=== PATIENT | female | born 1960 | race Caucasian/White ===

== ENCOUNTER 2019-06-04 08:00 | Outpatient (CLI) | payer MEDICAID | END 2019-06-04 23:59 | disposition home or self-care (01) | LOC: D.MAMMO 08:00 | PROVIDERS: ATTEND Nurse Practitioner Family | DX: Z12.31 Encounter for screening mammogram for malignant neoplasm of breast (principal) ==

== ENCOUNTER 2019-08-28 19:00 | Outpatient (CLI) | payer OTHER | END 2019-08-28 23:59 | disposition home or self-care (01) | LOC: D.MAMMO 19:00 | PROVIDERS: ATTEND Nurse Practitioner Family | DX: R92.8 Other abnormal and inconclusive findings on diagnostic imaging of breast (principal) ==

== ENCOUNTER → 2019-09-05 07:11 | Outpatient (CLI) | payer OTHER | END | disposition home or self-care (01) | LOC: D.US 07:11 | PROVIDERS: ATTEND Nurse Practitioner Family | DX: R92.8 Other abnormal and inconclusive findings on diagnostic imaging of breast (principal) ==

== ENCOUNTER 2019-09-13 13:44 | Emergency (ER) | payer OTHER ==
[~2019-09-13] VITALS: Ht 166.4 cm; Wt 95.5 kg
[2019-09-13 13:48] VITALS: Ht 166.4 cm; Wt 95.5 kg
[2019-09-13] MEDS ORDERED: METFORMIN HCL500 M1 PO (13:51)
[2019-09-13] MEDS ORDERED: LISINOPRIL10 MG PO (13:51)
[2019-09-13] MEDS ORDERED: GABAPENTIN100 MG PO (13:52)
[2019-09-13 14:46] LABS: BASOPHILS 0.4 % (0-2); EOSINOPHILS 2.2 % (0-7); HEMATOCRIT 40.3 % (36.0-48.0); HEMOGLOBIN 13.7 g/dL (12-16); IMMATURE GRANULOCYTES 0.2 % (0-5); LYMPHOCYTES 31.9 % (15-50); MCH 31.1 pg (26.0-34.0); MCV 91.6 fL (80.0-100.0); MEAN PLATELET VOLUME 9.1 fL (7.4-10.4); MONOCYTES 4.5 % (2-11); NEUTROPHILS 60.8 % (40-80); PLATELET COUNT 345 10x3/uL (130-400); RDW 12.5 % (11.5-14.5); WBC 9.6 10x3/uL (4.8-10.8)
[2019-09-13] MEDS ORDERED: ZOLOFT100 MG PO (14:57)
[2019-09-13] MEDS ORDERED: METHOCARBAMOL750 MG NG (14:59)
[2019-09-13] MEDS ORDERED: LIPITOR20 MG PO (15:00)
[2019-09-13 15:11] LABS: CALC OSMOLALITY 281 mosm/kg (275-300); CARBON DIOXIDE 30.8 mmol/L (21.0-32.0); CHLORIDE - SERUM 105 mmol/L (98-107); CREATININE - SERUM 0.8 mg/dL (0.6-1.3); GLUCOSE 102 mg/dL (74-106); POTASSIUM - SERUM 4.3 mmol/L (3.5-5.1); SODIUM 142 mmol/L (136-145); UREA NITROGEN 11 mg/dL (7-18); eGFR NON AFRICAN AMERICAN 78 mL/min (90-120)
[2019-09-13 15:23] LABS: ALKALINE PHOSPHATASE 120 U/L (30-120); ALT (SGPT) 27 U/L (10-68); BILIRUBIN - TOTAL 0.29 mg/dL (0.2-1.3); CKMB 1.3 U/L (0.0-3.6); CREATINE KINASE 137 UL (21-215); MAGNESIUM - SERUM 1.7 mg/dL (1.8-2.4); PROTEIN - SERUM 7.2 g/dL (6.4-8.2); TROPONIN-I < 0.017 ng/mL (0.000-0.060)
[2019-09-13 15:26] LABS: APTT 30.6 SECONDS (22.8-39.4); INR 0.89 (0.85-1.17)
[2019-09-13 16:43] VITALS: BP 130/73
== END 2019-09-13 16:45 | disposition home or self-care (01) ==
LOC: D.ER 13:44
PROVIDERS: Family Medicine
DX: G89.18 Other acute postprocedural pain (principal); R07.9 Chest pain, unspecified; N64.4 Mastodynia; E11.40 Type 2 diabetes mellitus with diabetic neuropathy, unspecified; I10 Essential (primary) hypertension; Z79.84 Long term (current) use of oral hypoglycemic drugs

== ENCOUNTER 2019-12-11 05:48 | Day surgery (SDC) | payer OTHER ==
[2019-12-10 10:33] LABS: APTT 28.6 SECONDS (22.8-39.4); INR 0.96 (0.85-1.17); PROTIME 12.7 SECONDS (11.6-15.0)
[2019-12-10 10:37] LABS: BASOPHILS 0.5 % (0-2); EOSINOPHILS 2.5 % (0-7); HEMATOCRIT 42.2 % (36.0-48.0); HEMOGLOBIN 13.5 g/dL (12-16); IMMATURE GRANULOCYTES 0.2 % (0-5); LYMPHOCYTES 23.9 % (15-50); MCH 30.3 pg (26.0-34.0); MCV 94.6 fL (80.0-100.0); MEAN PLATELET VOLUME 9.3 fL (7.4-10.4); MONOCYTES 8.2 % (2-11); NEUTROPHILS 64.7 % (40-80); PLATELET COUNT 362 10x3/uL (130-400); RBC 4.46 10x6/uL (4.00-5.40); RDW 12.9 % (11.5-14.5); WBC 10.2 10x3/uL (4.8-10.8)
[2019-12-10 10:41] LABS: ANION GAP 16.3 mmol/L (8-16); CALCIUM 9.3 mg/dL (8.5-10.1); CARBON DIOXIDE 24.4 mmol/L (21.0-32.0); POTASSIUM - SERUM 4.7 mmol/L (3.5-5.1)
[~2019-12-11] VITALS: Ht 165.1 cm; Wt 98.2 kg
[2019-12-11] VITALS (7 sets, daily range): BP systolic 113–148; BP diastolic 60–71; Ht 165.1 cm; Wt 98.2 kg
[~2019-12-11 05:48] MED LIST: GABAPENTIN100 MG PO; GEMFIBROZIL600 MG PO; KLONOPIN0.5 MG PO; LIPITOR20 MG PO; LISINOPRIL10 MG PO; METFORMIN HCL500 M1 PO; METHOCARBAMOL750 MG NG; MOBIC7.5 MG PO; OMEPRAZOLE20 M1 PO; ZOLOFT100 MG PO
--- NOTE | 2019-12-11 11:30 | NUR ---
RECEIVED PT FROM RN'S GABI AND GWEN. PT IS SEDATED, EASILY AWAKENED TO ANSWER QUESTIONS. IV IN RT HAND PATENT, GILMAR DRAIN TO RT AND LT SIDE OF CHEST, COMPRESSED AND DRAINING BLOODY FLUID. PT STATES PAIN IS AT AN 8 STILL, INFORMED PT THAT IT MAY STILL BE TOO EARLY TO ADMINISTER ANY AT THE MOMENT AND I WILL WAIT UNTIL AFTER PT EATS TO ADMINISTER ANY MORE IF PAIN IS NOT CONTROLLED BY THEN. PT HAS JERMAIN BANDAGE INTACT AROUND CHEST. NO OTHER NEEDS VOICED ,PT STATED SHE JUST WANTS TO REST AND HAS INFORMED HER CHILDREN TO NOT CALL. PT DAUGHTER HAS ALREADY CALLED TWICE TO CHECK ON PT . CL IN REACH, ASSUME PT CARE
--- NOTE | 2019-12-11 15:45 | NUR ---
PT SLEEPING ON RT SIDE, WOKE PT FOR SCHEDULED MEDS, WHEN PT ASKED WHAT HER PAIN LEVEL WAS SHE STATED " HURTS LIKE HELL". ADMINISTERED PRN PAIN MEDICATION WELL. PT HAS 2 GILMAR DRAINS ON RT SIDE WELL 2 GILMAR DRAINS ON LEFT SIDE. JP1 EMPTIED 70, GILMAR 2 EMPTIED 10, GILMAR 3 EMPTIED 30 GILMAR 4 EMPTIED 10. RT SIDE GILMAR DRAINS LABELED 1&2 AND LEFT SIDE LABELED 3&4. NO OTHER NEEDS VOICED AT THIS TIME, CONTINUE WITH PLAN OF CARE
[2019-12-12 00:02] VITALS: BP 128/63
--- NOTE | 2019-12-12 04:40 | NUR ---
I have reviewed this patient and I concur with the Shift Assessment completed by the Licensed Practical Nurse today this shift.
[2019-12-12 04:45] VITALS: BP 118/72
[2019-12-12 05:02] LABS: BASOPHILS 0.4 % (0-2); EOSINOPHILS 2.7 % (0-7); HEMATOCRIT 38.5 % (36.0-48.0); HEMOGLOBIN 12.1 g/dL (12-16); IMMATURE GRANULOCYTES 0.2 % (0-5); LYMPHOCYTES 23.6 % (15-50); MCHC 31.4 g/dL (31.0-37.0); MCV 95.3 fL (80.0-100.0); MEAN PLATELET VOLUME 8.8 fL (7.4-10.4); MONOCYTES 7.7 % (2-11); NEUTROPHILS 65.4 % (40-80); RBC 4.04 10x6/uL (4.00-5.40); RDW 13.2 % (11.5-14.5); WBC 9.2 10x3/uL (4.8-10.8)
[2019-12-12 05:24] LABS: PLATELET COUNT 285 10x3/uL (130-400)
[2019-12-12 05:34] LABS: CALC OSMOLALITY 284 mosm/kg (275-300); CALCIUM 8.3 mg/dL (8.5-10.1); CARBON DIOXIDE 25.1 mmol/L (21.0-32.0); CHLORIDE - SERUM 106 mmol/L (98-107); CREATININE - SERUM 0.8 mg/dL (0.6-1.3); GLUCOSE 129 mg/dL (74-106); POTASSIUM - SERUM 4.1 mmol/L (3.5-5.1); SODIUM 141 mmol/L (136-145); UREA NITROGEN 17 mg/dL (7-18); eGFR NON AFRICAN AMERICAN 78 mL/min (90-120)
[2019-12-12 08:54] VITALS: BP 120/71
--- NOTE | 2019-12-12 09:38 | NUR ---
ALERT AND ORIENTED. LUNGS CLEAR BILATERALLY. HEART SOUNDS S1 AND S2 HEARD IN ALL DOS SANTOS. DRSGS TO BILATERAL CHEST C/D/I. X [address] IV TO RIGHT HAND PATENT WITHOUT REDNES. DENIES NEEDS. BED LOW. CALL MARCELINO AND PERSONAL ITEMS IN REACH. WILL CONTINUE TO MONITOR.
--- NOTE | 2019-12-12 09:57 | OP ---
PATIENT NAME: GOPI BENSON MEDICAL RECORD: [id number] :62 LOCATION:[id number] ADMISSION DATE:12/11/19 SURGEON: DOMINICK STEWART MD DATE OF OPERATION: 12/11/2019 PREOPERATIVE DIAGNOSES: 1. Ductal carcinoma in situ of the left breast. 2. Diabetes mellitus. 3. Hypercholesterolemia. 4. Hypertension. POSTOPERATIVE DIAGNOSES: 1. Ductal carcinoma in situ of the left breast. 2. Diabetes mellitus. 3. Hypercholesterolemia. 4. Hypertension. PROCEDURE: Bilateral simple mastectomies. SURGEON: Dominick Stewart MD REPORT OF PROCEDURE: The patient's chest was prepped and draped in sterile fashion. An ovoid incision was made starting on the right breast. This was done around the nipple areolar complex. Electrocautery was used to dissect through the subcutaneous tissues to the breast tissue. We took off the breast tissue, incorporating a small piece of the underlying fatty tissue. We continued this dissection superiorly to the clavicles, inferiorly down to the rectus, laterally towards the axilla and lateral chest wall and medially to the sternum. Once we had this freed up from the surrounding subcutaneous tissue, then we took the breast tissue and pectoral fascia off of the pectoral muscle. Any bleeding that was found was treated with electrocautery or with 3-0 silk ties. Once we had the breast taken off, then it was marked appropriately and sent off for permanent specimen. We irrigated out the wound with sterile water and checked thoroughly for any signs of bleeding. We then made two small openings in the lateral right chest inferior to the wound and placed a 10 flat GILMAR drains times 2. Over this, we closed the subcutaneous tissues with interrupted 3-0 Vicryls and the skin was closed with toño. The drains were sutured into place with 3-0 nylons. We then approached the patient's left side and another ovoid incision was made around the nipple areolar complex. Electrocautery was used to dissect through the subcutaneous tissues to the breast. We then dissected the breast tissue away from the underlying subcutaneous fatty tissue and continued our dissection superiorly to the clavicle, medially to the sternum, inferiorly to the rectus muscles and laterally to the lateral chest wall and axilla. The breast and pectoral fascia were then taken off the pectoralis muscle and the breast tissue was marked appropriately and sent off for permanent specimen. We irrigated out the wound with sterile water. Any bleeding sources that were found were treated with 3-0 silk ties or electrocautery. We placed a 10 flat GILMAR drains times 2 in the left pocket and then closed the subcutaneous tissues with interrupted 3-0 Vicryl and the skin was closed with toño. The drains were sutured into place with 3-0 nylons. The wounds were then dressed appropriately. COMPLICATIONS: None. CONDITION: Stable. OPERATIVE REPORT [id number] GOPI BENSON ANESTHESIA: General endotracheal. BLOOD LOSS: 100 mL. TRANSINT:[id number] Voice Confirmation ID: [id number] DOCUMENT ID: [id number] DOMINICK STEWART MD at 0957 CC: [facility] [id number] DICTATION DATE: 12/11/19 1022 ENGINEER SYSTEM ADMINISTRATOR: 12/11/19 1259 ADM IN [facility] [address] [place] [address]
[2019-12-12] MEDS ORDERED: HYDROCODON-ACE1 EA10 PO (12:44)
--- NOTE | 2019-12-12 15:00 | NUR ---
IV THERAPY DC'ED FROM RIGHT HAND. VERBALIZED UNDERSTANDING OF DISCHARGE INSTRUCTIONS. VERBALLY EXPLAINED TO ME THE PROCESS OF EMPTYING AND RECORDING GILMAR DRAINS. CUPS GIVEN TO AID WITH THIS. ESCORTED DOWN TO FRONT ENTRANCE.
== END 2019-12-12 15:01 | disposition home or self-care (01) ==
LOC: D.SDCHOLD 05:48 → D.OPS 05:48 → D.MS 05:48 → D.SDCHOLD 07:30 → EDSTATUS 07:30 → D.MS 10:30 → D.SDCHOLD 10:30 → D.MS 12-12 15:01 → D.OPS 12-12 15:01
PROVIDERS: Anesthesiology; ATTEND Surgery
DX: D05.12 Intraductal carcinoma in situ of left breast (principal); E11.9 Type 2 diabetes mellitus without complications; E78.00 Pure hypercholesterolemia, unspecified; I10 Essential (primary) hypertension; Z79.84 Long term (current) use of oral hypoglycemic drugs

== ENCOUNTER 2020-01-03 12:41 | Emergency (ER) | payer OTHER ==
[~2020-01-03] VITALS: Ht 165.1 cm; Wt 98.2 kg
[~2020-01-03 12:41] MED LIST changes: +HYDROCODON-ACE1 EA10 PO
[2020-01-03 12:46] VITALS: Ht 165.1 cm; Wt 98.2 kg
[2020-01-03 13:19] LABS: BASOPHILS 0.4 % (0-2); EOSINOPHILS 1.4 % (0-7); HEMATOCRIT 38.4 % (36.0-48.0); HEMOGLOBIN 12.6 g/dL (12-16); IMMATURE GRANULOCYTES 0.2 % (0-5); LYMPHOCYTES 19.2 % (15-50); MCH 30.5 pg (26.0-34.0); MCHC 32.8 g/dL (31.0-37.0); MONOCYTES 10.2 % (2-11); NEUTROPHILS 68.6 % (40-80); RBC 4.13 10x6/uL (4.00-5.40); RDW 12.9 % (11.5-14.5); WBC 10.6 10x3/uL (4.8-10.8)
[2020-01-03 13:22] LABS: PLATELET COUNT 468 10x3/uL (130-400)
[2020-01-03 13:28] LABS: APTT 30.7 SECONDS (22.8-39.4); INR 1.04 (0.85-1.17); PROTIME 13.6 SECONDS (11.6-15.0)
[2020-01-03 13:35] LABS: CALC OSMOLALITY 279 mosm/kg (275-300); CALCIUM 9.5 mg/dL (8.5-10.1); CARBON DIOXIDE 24.2 mmol/L (21.0-32.0); CHLORIDE - SERUM 104 mmol/L (98-107); GLUCOSE 125 mg/dL (74-106); SODIUM 138 mmol/L (136-145); UREA NITROGEN 21 mg/dL (7-18); eGFR NON AFRICAN AMERICAN 60 mL/min (90-120)
[2020-01-03 13:52] LABS: ALBUMIN 4.2 g/dL (3.4-5.0); ALKALINE PHOSPHATASE 99 U/L (30-120); ALT (SGPT) 29 U/L (10-68); BILIRUBIN - TOTAL 0.34 mg/dL (0.2-1.3); CKMB 0.7 U/L (0.0-3.6); CREATINE KINASE 108 UL (21-215); MAGNESIUM - SERUM 1.7 mg/dL (1.8-2.4); PROTEIN - SERUM 7.8 g/dL (6.4-8.2)
[2020-01-03 13:53] LABS: TROPONIN-I < 0.017 ng/mL (0.000-0.060)
[2020-01-03] MEDS ORDERED: PROTONIX40 MG PO (14:11)
[2020-01-03 14:16] VITALS: BP 153/63
== END 2020-01-03 14:20 | disposition home or self-care (01) ==
LOC: D.ER 12:41
PROVIDERS: Family Medicine
DX: K21.9 Gastro-esophageal reflux disease without esophagitis (principal); I89.0 Lymphedema, not elsewhere classified; G89.18 Other acute postprocedural pain; E11.40 Type 2 diabetes mellitus with diabetic neuropathy, unspecified; Z79.84 Long term (current) use of oral hypoglycemic drugs; I10 Essential (primary) hypertension; R07.9 Chest pain, unspecified

== ENCOUNTER 2020-01-11 08:39 | Outpatient (CLI) | payer OTHER ==
[~2020-01-11] VITALS: Ht 165.1 cm; Wt 98.2 kg
--- NOTE | ~2020-01-11 | HEMODYNAMI ---
PATIENT:GOPI BENSON MEDICAL RECORD: [id number] : 62 LOCATION:[facility] ADMISSION DATE: 01/11/20 Generatedon:01/11/202012:06 Patient name: GOPI BENSON Patient #: [id number] SSN: : 1960 Date of study: 01/11/2020 Page: Of Hemodynamic Procedure Report Patient Data Patient Demographics Procedure consent was obtained First Name: GOPI Gender: Female Last Name: KELLEY : 1960 Patient #: [id number] Age: 59 year(s) Race: Unknown Additional ID: [id number] Contact details [address]: [address] [place] [address] State: [place] City: [place] Zip code: [address] Past Medical History Allergies Allergen Reaction Date Comments Reported Aspirin 01/11/2020 Other allergy 01/11/2020 tramadol, buspirone Admission Admission Data Admission Date: 01/11/2020 Admission Time: 8:39 Height (in.): 65 BSA: 2.04 (m2) Height (cm.): 165.1 BMI: 35.94 (kg/m2) Weight (lbs.): 216 Weight (kg.): 97.98 Procedure Procedure Types Cath Procedure Peripheral Cath 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 1 mg Fentanyl I.V. 50 mcg Versed I.V. 1 mg Fentanyl I.V. 50 mcg Lidocaine 1% added to field 20 Heparin Flush Bag added to field 1 bags (1000units/500ml NS) Hemodynamics Rest BSA: 2.04 (m2) O2 Consumption: Estimated: 213.37 (ml/min) O2 Consumption indexed : Estimated:104.59 (ml/min/m) Heart Rate: 94 (bpm) Snapshots Pre Cath Intra NCS Post Cath Vital Signs Time Heart Resp SPO2 etCO2 NIBP (mmHg) Rhythm Pain Sedation Rate (ipm) (%) (mmHg) Status Level (bpm) 11:38:42 89 22 93 35.4 166/86(98) NSR 0 (11) 10(A) , No pain 11:43:00 91 23 94 36.1 163/82(113) NSR 0 (11) 10(A) , No pain 11:47:22 95 24 94 21.8 165/83(127) NSR 0 (11) 10(A) , No pain 11:50:08 90 18 94 33.9 163/76(118) NSR 0 (11) 9(A) , No pain 11:55:07 94 11 95 25.6 Measuring NSR 0 (11) 9(A) , No pain 11:55:32 96 9 95 30.9 159/82(107) NSR 0 (11) 9(A) , No pain 11:59:52 92 13 93 31.6 133/115(126) NSR 0 (11) 9(A) , No pain 12:04:51 87 15 95 30.1 Measuring NSR 0 (11) 9(A) , No pain 12:06:11 88 9 95 38.4 152/80(112) NSR 0 (11) 9(A) , No pain Medications Time Medication Route Dose Verified Delivered Reason Notes Effe ctiveness by by 11:40:17 Heparin Flush added 1 Rao Yeh used for Bag to bags Benjy Burleson procedure (1000units/500ml field MD BELL NS) 11:40:51 Lidocaine 1% added 20ml Rao Yeh for local to vial Benjy Burleson anesthetic field MD BELL 11:48:53 Versed I.V. 1 mg Rao Crisostomo for Benjy Zepeda RN sedation 11:49:05 Fentanyl I.V. 50 Rao Crisostomo for mcg Benjy Zepeda RN sedation 11:58:41 Versed I.V. 1 mg Rao Crisostomo for Benjy Zepeda RN sedation 11:58:50 Fentanyl I.V. 50 Rao Crisostomo for [facility] Benjy Zepeda RN sedation MD Procedure Log Time Note 11:13:38 Patient Height : 65 inches 11:13:44 Patient Weight : 216 lbs 11:14:15 Use device set IR Diagnostic 11:14:17 Sterile Angiographic Pack opened to sterile field. 11:14:18 Bag Decanter (2002S) opened to sterile field. 11:14:24 - 11:23:18 Time tracking: Regular hours (M-F 7:00 - 5:00) 11:23:32 Plan of Care:Hemodynamics will remain stable., Cardiac rhythm will remain stable., Comfort level will be maintained., Respiratory function will remain adequate., Patient/ family verbilizes understanding of procedure., Procedure tolerated without complication., Recovers from procedure without complications.. 11:23:40 Patient received from Outpatients to IR Alert and oriented. Tansferred to table in Supine position. 11:23:43 Signed procedure consent form obtained from patient. 11:23:55 H&P Date Dictated: 01/11/2020 Within 30 days and on chart., H&P Addendum completed by physician on day of procedure. (MUST COMPLETE FOR ALL OUTPATIENTS). 11:23:57 Pre-procedure instructions explained to patient. 11:23:58 Pre-op teaching completed and patient verbalized understanding. 11:24:00 Family unavailable. 11:24:02 Patient NPO since Midnight. 11:24:13 Patient allergic to Aspirin 11:25:13 Patient allergic to Other allergytramadol, buspirone 11:25:17 Is the patient allergic to Iodine/contrast media? No. 11:25:20 Is patient on blood thinner?No 11:25:22 Patient diabetic? Yes. 11:25:24 If diabetic: On Metformin? Yes 11:25:29 If on Metformin: Last Dose? 01/11/2020 11:25:32 - :34 ----Pre-sedation anethsthesia assessment.---- :37 Previous problem with sedation/anesthesia? No ? 11::40 Snore? Yes 11::44 Sleep apnea? No ::50 Deviated septum? No ::56 Opens mouth fully? Yes 11::58 Sticks out tongue? Yes 11::00 Airway obstruction? No ? 11:26:05 Dentures? No ? 11::08 - : Right chest area was prepped with chlora-prep and draped in sterile fashion ::37 Fire Safety Assessment: A--An alcohol-based skin anteseptic being used preoperatively., C--Open oxygen or nitrous oxide is being used. 11:37:31 Vital chart was started 11:37:41 Baseline sample Acquired. 11:40:17 Heparin Flush Bag (1000units/500ml NS) 1 bags added to field was administered by Rao Burleson MD; used for procedure; Verbal order read back and verified. 11:40:51 Lidocaine 1% 20ml vial added to field was administered by Rao guy MD; for local anesthetic; Verbal order read back and verified. 11:44:33 Physician arrived :34 --------ALL STOP TIME OUT------ 11:44:35 Final Timeout: patient, procedure, and site verified with staff and physician. All members of the team are in agreement. 11:45:02 Procedure started. 11:45:02 Full Disclosure recording started 11:45:08 Local anesthetic to Chest area with Lidocaine 1% by Rao Burleson MD.INITIAL ACCESS ONLY 11:48:53 Versed 1 mg I.V. was administered by Andressa Zepeda RN; for sedation; Verbal order read back and verified. 11:49:05 Fentanyl 50 mcg I.V. was administered by Andressa Zepeda RN; for sedation ; Verbal order read back and verified. 11:54:42 YUCH needle opened to sterile field. 11:54:44 KAYLA .035 15cm wire ([id number]) opened to sterile field. 11:54:46 Abscession 10 FR drainage catheter ([id number]) opened to sterile field. 11:54:47 STOPCOCK 3-Way Large Bore ([id number]) opened to sterile field. 11:54:48 BAG, DRAINAGE EMPTY 600ML W/TERE ([id number]) opened to sterile field. 11:58:41 Versed 1 mg I.V. was administered by Andressa Zepeda RN; for sedation; Verbal order read back and verified. 11:58:50 Fentanyl 50 mcg I.V. was administered by Andressa Zepeda RN; for sedation ; Verbal order read back and verified. 12:03:09 Procedure ended.(Physican Out) 12:03:20 Fluoroscopy time 00.40 minutes. 12:03:25 Fluoroscopy dose: 1 mGy 12:03:25 Flurop Dose total: 1 12:03:29 Procedure and supply charges have been captured, reviewed, submitted an d are correct. 12:05:03 Report given to Outpatients. 12:06:40 Vital chart was stopped Device Usage Item Name Manufacture Quantity Catalog Hospital Part Current Minima l Lot# / Number Charge Number Stock Stock Serial# Code Sterile Cardinal 1 [id number] 5 Angiographic Health Pack Bag Decanter Microtek 1 [id number] 58023 [id number] 5 () [employer] YUCH needle [employer] 1 [id number] 040682 477928 5 [id number] KAYLA .035 [employer] 1 [id number] 276444 [id number] 5 [id number] 15cm wire ([id number]) Abscession Angiodynamics 1 [id number] 086568 [id number] [id number] 5 10 FR drainage catheter ([id number]) STOPCOCK [employer] 1 [id number] 998421 2982 [id number] 5 [id number] 3-Way Large Bore ([id number]) BAG, [facility] 1 [id number] 363897 939086 [id number] 5 DRAINAGE EMPTY 600ML W/TERE (ZZF014) Signature Audit Gary Stage Time Signature Unsigned Intra-Procedure 01/11/2020 Una Miller 12:06:37 PM RT(R) [facility] [address] [place] [address]
[~2020-01-11 08:39] MED LIST changes: +PROTONIX40 MG PO
[2020-01-11 09:29] LABS: ANION GAP 14.4 mmol/L (8-16); CALCIUM 9.6 mg/dL (8.5-10.1); CARBON DIOXIDE 28.7 mmol/L (21.0-32.0); CREATININE - SERUM 0.9 mg/dL (0.6-1.3); POTASSIUM - SERUM 4.1 mmol/L (3.5-5.1)
[2020-01-11 09:31] LABS: APTT 32.8 SECONDS (22.8-39.4); INR 1.06 (0.85-1.17); PROTIME 13.8 SECONDS (11.6-15.0)
[2020-01-11 10:13] VITALS: Ht 165.1 cm; Wt 98.2 kg
[2020-01-11 10:40] LABS: BASOPHILS 0.3 % (0-2); EOSINOPHILS 2.3 % (0-7); HEMATOCRIT 38.5 % (36.0-48.0); HEMOGLOBIN 12.5 g/dL (12-16); IMMATURE GRANULOCYTES 0.3 % (0-5); LYMPHOCYTES 19.5 % (15-50); MCH 30.1 pg (26.0-34.0); MCHC 32.5 g/dL (31.0-37.0); MCV 92.8 fL (80.0-100.0); MEAN PLATELET VOLUME 9.1 fL (7.4-10.4); MONOCYTES 6.7 % (2-11); NEUTROPHILS 70.9 % (40-80); RBC 4.15 10x6/uL (4.00-5.40); RDW 12.6 % (11.5-14.5); WBC 11.9 10x3/uL (4.8-10.8)
[2020-01-11 10:42] LABS: PLATELET COUNT 578 10x3/uL (130-400)
== END 2020-01-11 13:33 | disposition home or self-care (01) ==
LOC: D.US 08:39
PROVIDERS: Radiology Diagnostic Radiology; ATTEND Surgery
DX: C50.912 Malignant neoplasm of unspecified site of left female breast (principal); D24.1 Benign neoplasm of right breast; T81.89XA Other complications of procedures, not elsewhere classified, initial encounter; E11.9 Type 2 diabetes mellitus without complications; K21.9 Gastro-esophageal reflux disease without esophagitis; I10 Essential (primary) hypertension; Z79.84 Long term (current) use of oral hypoglycemic drugs

== ENCOUNTER 2020-05-13 10:50 | Inpatient (IN) | payer OTHER ==
[~2020-05-13] VITALS: Ht 165.1 cm; Wt 91.6 kg
[2020-05-13] MEDS ORDERED: NEURONTIN600 MG PO (11:11)
[2020-05-13] MEDS ORDERED: ATIVAN2 MG PO (11:12)
[2020-05-13 12:02] LABS: BASOPHILS 0.4 % (0-2); HEMATOCRIT 45.2 % (36.0-48.0); HEMOGLOBIN 15.3 g/dL (12-16); IMMATURE GRANULOCYTES 0.2 % (0-5); LYMPHOCYTES 14.5 % (15-50); MCH 29.7 pg (26.0-34.0); MCHC 33.8 g/dL (31.0-37.0); MCV 87.6 fL (80.0-100.0); MEAN PLATELET VOLUME 8.8 fL (7.4-10.4); MONOCYTES 7.7 % (2-11); NEUTROPHILS 76.2 % (40-80); RBC 5.16 10x6/uL (4.00-5.40); RDW 13.8 % (11.5-14.5); WBC 12.5 10x3/uL (4.8-10.8)
[2020-05-13 12:10] LABS: PLATELET COUNT 312 10x3/uL (130-400)
[2020-05-13 12:13] LABS: INR 1.03 (0.85-1.17); PROTIME 13.5 SECONDS (11.6-15.0)
[2020-05-13 12:23] LABS: CALC OSMOLALITY 276 mosm/kg (275-300); CALCIUM 9.5 mg/dL (8.5-10.1); CHLORIDE - SERUM 102 mmol/L (98-107); CREATININE - SERUM 0.9 mg/dL (0.6-1.3); GLUCOSE 123 mg/dL (74-106); POTASSIUM - SERUM 3.3 mmol/L (3.5-5.1); SODIUM 137 mmol/L (136-145); UREA NITROGEN 17 mg/dL (7-18); eGFR NON AFRICAN AMERICAN 68 mL/min (90-120)
[2020-05-13 12:32] LABS: ALBUMIN 4.9 g/dL (3.4-5.0); ALKALINE PHOSPHATASE 88 U/L (30-120); ALT (SGPT) 36 U/L (10-68); BILIRUBIN - TOTAL 0.37 mg/dL (0.2-1.3); C-REACTIVE PROTEIN 1.6 mg/dL (0.0-0.9); CKMB 1.9 U/L (0.0-3.6); CREATINE KINASE 311 UL (21-215); PROTEIN - SERUM 8.5 g/dL (6.4-8.2); TROPONIN-I < 0.017 ng/mL (0.000-0.060)
[2020-05-13 12:57] LABS: AMORPHOUS SEDIMENT <1+ LPF (NONE SEEN); BACTERIA FEW HPF (NONE SEEN); BILIRUBIN NEGATIVE (NEGATIVE); EPITHELIAL CELLS OCC /hpf (0-5); KETONE NEGATIVE (NEGATIVE); NITRITE NEGATIVE (NEGATIVE); UROBILINOGEN NORMAL mg/dL (< 2); WHITE CELLS - URINE RARE HPF (0-4)
[2020-05-13 14:10] VITALS: BP 155/84
[2020-05-13 14:41] VITALS: BP 147/67
--- NOTE | 2020-05-13 15:16 | NUR ---
LEVAQIN COMPLETED AT THIS TIME
--- NOTE | 2020-05-13 16:40 | NUR ---
VERONICA COMPLETED AT THIS TIME
--- NOTE | 2020-05-13 17:53 | NUR ---
RECEIVE REPORT FROM GIOVANNI WORRELL IN THE ED. STATES PATIENT IS ALERT AND ORIENTED. SHE IS A PUI. COMPLAINTS OF CHEST PAIN, FEVER, COUGH, ABDOMINAL PAIN, AND DIARRHEA. RIGHT FOREARM WITH NS @ 100.
[2020-05-13] MEDS ORDERED: COZAAR50 MG PO (18:23)
[2020-05-13] MEDS ORDERED: INVOKANA100 MG PO (18:26)
[2020-05-13] MEDS ORDERED: NORVASC10 MG PO (18:27)
--- NOTE | 2020-05-13 18:32 | NUR ---
ARRIVED TO UNIT VIA BED. ALERT AND ORIENTED. UP WITH MINIMAL ASSIST. VITAL SIGNS 156/77, 89, 97.8, 92% ROOM AIR, RR 19. RIGHT FOREARM PIV. DENIES ANY NEEDS AT THIS TIME.
--- NOTE | 2020-05-13 19:30 | NUR ---
PT IN BED, AAO X 2, RESP EVEN AND UNLABORED. NO DISTRESS NOTED, CL IN REACH, SR UP X 2.
[2020-05-13 20:00] VITALS: BP 134/74
[2020-05-13 20:18] LABS: CKMB 1.2 U/L (0.0-3.6); CREATINE KINASE 255 UL (21-215)
[2020-05-13 20:24] LABS: TROPONIN-I < 0.017 ng/mL (0.000-0.060)
[2020-05-14] VITALS: BP 125/55
[2020-05-14 01:01] LABS: CREATINE KINASE 241 UL (21-215); TROPONIN-I < 0.017 ng/mL (0.000-0.060)
[2020-05-14 04:00] VITALS: BP 149/45
[2020-05-14 07:11] LABS: BASOPHILS 0.4 % (0-2); EOSINOPHILS 1.7 % (0-7); HEMATOCRIT 45.1 % (36.0-48.0); IMMATURE GRANULOCYTES 0.1 % (0-5); MCH 29.4 pg (26.0-34.0); MCHC 33.3 g/dL (31.0-37.0); MCV 88.3 fL (80.0-100.0); MEAN PLATELET VOLUME 9.3 fL (7.4-10.4); MONOCYTES 8.4 % (2-11); NEUTROPHILS 68.4 % (40-80); PLATELET COUNT 334 10x3/uL (130-400); RBC 5.11 10x6/uL (4.00-5.40); WBC 11.1 10x3/uL (4.8-10.8)
--- NOTE | 2020-05-14 07:15 | NUR ---
RECEIVE SHIFT REPORT. RESTING IN BED ON TELEPHONE. DENIES ANY NEEDS AT THIS TIME. WILL CONTINUE PLAN OF CARE AND SAFETY PRECAUTIONS. BED IN LOWEST POSITION.
[2020-05-14 07:37] LABS: CALC OSMOLALITY 278 mosm/kg (275-300); CALCIUM 9.1 mg/dL (8.5-10.1); CARBON DIOXIDE 27.3 mmol/L (21.0-32.0); CHLORIDE - SERUM 102 mmol/L (98-107); CKMB 1.1 U/L (0.0-3.6); CREATINE KINASE 223 UL (21-215); CREATININE - SERUM 0.8 mg/dL (0.6-1.3); GLUCOSE 111 mg/dL (74-106); POTASSIUM - SERUM 3.4 mmol/L (3.5-5.1); SODIUM 139 mmol/L (136-145); UREA NITROGEN 13 mg/dL (7-18); eGFR NON AFRICAN AMERICAN 78 mL/min (90-120)
[2020-05-14 07:43] LABS: TROPONIN-I < 0.017 ng/mL (0.000-0.060)
[2020-05-14 09:00] VITALS: BP 157/76
[2020-05-14 12:00] VITALS: BP 160/70
[2020-05-14 14:11] VITALS: Ht 165.1 cm; Wt 91.6 kg
--- NOTE | 2020-05-14 20:43 | NUR ---
PATIENT C/O NOT BEING TAKEN CARE OFF. PATIENT STATES, "I MIGHT WELL BE HOME IF I'M GONNA TAKE ALL MY HOMES MEDS, FEED MYSELF AND LISTEN TO THE BEEPING OF MACHINES". PATIENT ALSO STATED WE ARE WITHHOLDING HER "PSYCH MEDS" AND CAUSING HER A GREAT DEAL OF ANXIETY AND THAT WE ARE FEEDING A REGULAR DIET WHEN SHE IS A DIABETIC. EXPLAINED TO PATIENT THAT SHE IS ON A FULL LIQUID DIET AND ASSURED HER THAT DIETARY DELIVERED THE APPROPRIATE TRAY. APOLOGIZED FOR THE DELAY IN RESTARTING HER HOMES MEDS AND THAT I WOULD PAGE DR. MOBLEY AND GET THAT TAKEN CARE OF. PATIENT ALSO STATED SHE WOULD LIKE HER "COUGH SYRUP" THAT WAS ORDERED FOR HER. INFORMED PATIENT SHE HAS TESSALON PERLE PRN FOR COUGH AND PATIENT SAID SHE'D TAKE IT. HOOKED PATIENTS IV FLUIDS BACK UP AND INSTRUCTED PATIENT TO CALL IF IT MAKES ANY NOISES AND EDUCATED HER ON DISCONNECTING HER OWN TUBING AND UNPLUGGING THE IV PUMP WILL CAUSE THE BATTERY TO EVENTUALLY DRAIN AND ALARM US TO PLUG IT BACK IN. PATIENT STATES UNDERSTANDING.
--- NOTE | 2020-05-14 20:52 | NUR ---
RECEIVED CALL BACK FROM DR. MOBLEY, INFORMED HER OF PATIENTS CONCERNED. DR. MOBLEY STATED SHE WILL RESUME HER HOME MEDS.
--- NOTE | 2020-05-14 21:16 | NUR ---
UPON ENTERING PATIENTS ROOM SHE WAS UP AND HYSTERICAL. PATIENT KEPT STATING SHE'S LEAVING SHE CAN'T DO THIS. I ASKED WHAT HAPPEND FROM THE TIME I LEFT TO CALL THE DOCTOR TO GET HER HOME MEDS RESTARTED AND NOW AND SHE SAID, "THIS IS BULLSHIT". EXPLAINED TO PATIENT I HAD HER MEDS IN MY HAND AND IF SHE WOULD HAVE A SEAT AND WE CAN TALK AND CALM DOWN A LITTLE. PATIENT HAD DAUGHTER ON THE PHONE YELLING THAT WE ARE MISTREATING HER MOTHER AND THAT SHE WAS ON HER WAY TO GET HER. EXPLAINED THAT WE JUST TALKED A FEW MINUTES AGO WHILE THE DAUGHTER WAS ON SPEAKERPHONE AND I HAD APOLOGIZED FOR HER HOME MEDS NOT BEING RESTARTED ALREADY AND THAT I'D GET IT TAKEN CARE OF. WE WERE ALL ON THE SAME PAGE UPON MY EXITING THE ROOM. [employer] FILLED OUT, SECURITY CALLED TO ENSURE HER PIV WAS REMOVED AND THAT SHE MADE IT TO THE ER ENTRANCE SAFELY. SCAFFOLDING HELPER AND DR. MOBLEY NOTIFIED.
== END 2020-05-14 21:32 | disposition left against medical advice (07) | DRG 392 ==
LOC: D.ER 10:50 → D.M2 14:07 → D.EDHOLD 14:07 → D.M2 17:31
PROVIDERS: Emergency Medicine; ADMIT Emergency Medicine; ATTEND Emergency Medicine
DX: K57.92 Diverticulitis of intestine, part unspecified, without perforation or abscess without bleeding (principal); F41.8 Other specified anxiety disorders; I10 Essential (primary) hypertension; E11.40 Type 2 diabetes mellitus with diabetic neuropathy, unspecified

== ENCOUNTER → 2020-05-27 10:54 | Outpatient (CLI) | payer MEDICAID ==
[2020-05-14 14:11] VITALS: BMI 33.6
[~2020-05-27 10:54] MED LIST changes: +ATIVAN2 MG PO; +COZAAR50 MG PO; +INVOKANA100 MG PO; +NEURONTIN600 MG PO; +NORVASC10 MG PO
== END | disposition home or self-care (01) ==
LOC: D.CT 10:54
PROVIDERS: ATTEND Surgery
DX: R07.9 Chest pain, unspecified (principal); Z85.3 Personal history of malignant neoplasm of breast